=== PATIENT | male | born 1970 | race Caucasian/White ===

== ENCOUNTER 2018-12-29 10:51 | Emergency (ER) | payer OTHER ==
--- NOTE | 2018-12-29 11:23 | EDM.PDOC ---
ED HPI GENERAL MEDICAL PROBLEM - General Chief Complaint: Upper Extremity Injury/Pain Stated Complaint: HAND INJURED Time Seen by Provider: 12/29/18 11:05 Source of Information: Reports: Patient History Limitations: Reports: No Limitations - History of Present Illness INITIAL COMMENTS - FREE TEXT/NARRATIVE: 48 YO WM presents to ER complaining of left hand injury which occurred at work today. Pt reports chuy mckayet came down on his hand causing crush injury to left hand. Pt denies any laceration or other injuries. Pt without any functional deficits other than limitations due to pain. Pt is neurovascularly intact without bruising or swelling or breaks in the skin. Onset: Today Location: Reports: Upper Extremity, Left Quality: Reports: Ache Severity: Moderate Improves with: Reports: Rest Worsens with: Reports: Movement Associated Symptoms: Reports: No Other Symptoms Left Hand Pain Score (Numeric/FACES): 5 - Related Data Allergies Allergy/AdvReac Type Severity Reaction Status Date / Time No Known Drug Allergies Allergy Other Verified 12/29/18 11:16 Home Meds: Home Meds Ibuprofen 400 mg PO ASDIRECTED PRN 12/29/18 [History] Lisinopril 2.5 mg PO DAILY 12/29/18 [History] Review of Systems - Review of Systems Review Of Systems: See Below Constitutional: Reports: No Symptoms Eyes: Reports: No Symptoms Ears: Reports: No Symptoms Nose: Reports: No Symptoms Mouth/Throat: Reports: No Symptoms Respiratory: Reports: No Symptoms Cardiovascular: Reports: No Symptoms GI/Abdominal: Reports: No Symptoms Genitourinary: Reports: No Symptoms Musculoskeletal: Reports: Hand Pain (left hand pain without ) Skin: Reports: No Symptoms Neurological: Reports: No Symptoms Psychiatric: Reports: No Symptoms ED EXAM, GENERAL - Physical Exam Exam: See Below Exam Limited By: No Limitations General Appearance: Alert, WD/WN, No Apparent Distress Nose: Normal Inspection, Normal Mucosa, No Blood Throat/Mouth: Normal Inspection, Normal Lips, Normal Teeth, Normal Gums, Normal Oropharynx, Normal Voice, No Airway Compromise Head: Atraumatic, Normocephalic Neck: Normal Inspection, Supple, Non-Tender, Full Range of Motion Respiratory/Chest: No Respiratory Distress, Lungs Clear, Normal Breath Sounds, No Accessory Muscle Use, Chest Non-Tender Cardiovascular: Normal Peripheral Pulses, Regular Rate, Rhythm, No Edema, No Gallop, No JVD, No Murmur, No Rub GI/Abdominal: Normal Bowel Sounds, Soft, Non-Tender, No Organomegaly, No Distention, No Abnormal Bruit, No Mass Back Exam: Normal Inspection, Full Range of Motion, NT Extremities: Normal Inspection, Normal Range of Motion, No Pedal Edema, Normal Capillary Refill, Other (left hand pain) Neurological: Alert, Oriented, CN II-XII Intact, Normal Cognition, Normal Gait, Normal Reflexes, No Motor/Sensory Deficits Psychiatric: Normal Affect, Normal Mood Skin Exam: Warm, Dry, Intact, Normal Color, No Rash Lymphatic: No Adenopathy Course - Vital Signs Last Recorded V/S: Last Vital Signs Temp 36.8 C 12/29/18 11:04 Pulse 99 12/29/18 11:04 Resp 16 12/29/18 11:04 BP 162/99 H 12/29/18 11:04 Pulse Ox 95 12/29/18 11:04 - Orders/Labs/Meds Orders: Active Orders 24 hr Category Date Time Status Hand 2V Lt [CR] Stat Exams 12/29/18 11:00 Ordered Wrist 2V Lt [CR] Stat Exams 12/29/18 11:01 Ordered - Radiology Interpretation Free Text/Narrative:: left hand- no fx left wrist- no fx Departure - Departure Time of Disposition: 11:37 Disposition: Home, Self-Care 01 Condition: Good Clinical Impression: Contusion of hand, left Qualifiers: Encounter type: initial encounter Qualified Code(s): S60.222A - Contusion of left hand, initial encounter Crush injury of hand Qualifiers: Encounter type: initial encounter Laterality: left Qualified Code(s): S67.22XA - Crushing injury of left hand, initial encounter - Discharge Information Instructions: Crush Injury of the Hand, [id number], Hand Contusion, Easy-to- Read Referrals: Wendie Carson PA-C [Primary Care Provider] - Forms: ED Department Discharge, ED Return to Work/School Form Additional Instructions: 1. discharge home 2. 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 motrin 600mg PO Q6 4. ice 5. return to ER for worsening symptoms - My Orders Last 24 Hours: My Active Orders 12/29/18 11:00 Hand 2V Lt [CR] Stat 12/29/18 11:01 Wrist 2V Lt [CR] Stat - Assessment/Plan Last 24 Hours: My Active Orders 12/29/18 11:00 Hand 2V Lt [CR] Stat 12/29/18 11:01 Wrist 2V Lt [CR] Stat Assessment:: 1. left hand contusion Plan: 1. discharge home 2. off work x 2 days then clinic follow up for re-evaluation and possible work restriction due to type of work ([employer]) 3. motrin 600mg PO Q6 4. ice 5. return to ER for worsening symptoms
[2018-12-29] MEDS: Ketorolac 60 MG/2 ML SDV IM ONE (11:28)
--- NOTE | 2018-12-29 11:36 | CR ---
[id number] RAD/RAD Hand Left 2V EXAM: 2 VIEWS LEFT HAND. INDICATION: PAIN TO LEFT HAND. COMPARISON: None. DISCUSSION: No fracture, dislocation or other acute osseous abnormality. Mild degenerative changes involving the 1st metacarpal phalangeal joint. IMPRESSION: 1. No acute osseous abnormalities. Seth Peraza DO 12/29/18 1133 Thank you for allowing us to participate in the care of your patient.
--- NOTE | 2018-12-29 11:36 | CR ---
[id number] RAD/RAD Wrist Left 2V EXAM: 2 VIEWS LEFT WRIST. INDICATION: PAIN TO LEFT HAND/WRIST, HAND TRAUMA. COMPARISON: None. DISCUSSION: No fracture, dislocation or other osseous abnormality. IMPRESSION: 1. No acute osseous abnormalities. Seth Peraza DO 12/29/18 1134 Thank you for allowing us to participate in the care of your patient.
== END 2018-12-29 11:50 | disposition home or self-care (01) ==
LOC: KA.ED 10:51 → EDSTATUS 11:39 → KA.ED 11:50 → EDSTATUS 12:45
DX: S67.22XA Crushing injury of left hand, initial encounter (principal); Z79.899 Other long term (current) drug therapy; W23.0XXA Caught, crushed, jammed, or pinched between moving objects, initial encounter
CPT/HCPCS: 73100-LT; 73120-LT; 99281; J1885

== ENCOUNTER 2021-11-18 19:00 | Observation (INO) | payer BC ==
--- NOTE | 2021-11-18 19:21 | EDM.PDOC ---
ED HPI GENERAL MEDICAL PROBLEM - General Chief Complaint: General Stated Complaint: RIGHT SIDED CHEST PAIN Time Seen by Provider: 11/18/21 19:10 Source of Information: Reports: Patient History Limitations: Reports: No Limitations - History of Present Illness INITIAL COMMENTS - FREE TEXT/NARRATIVE: 51 YO WM PRESENTS TO ER COMPLAINING OF RIGHT SIDED CHEST PAIN X 5 DAYS. PT RECENTLY HAD RIGHT SHOULDER ARTHROPLASTY 10/30/2021 AND RECENTLY STARTED PHYSICAL THERAPY. PT REPORTS HE HAD SOME SWELLING IN HIS RIGHT ARM LAST WEEK BUT IT RESOLVED SPONTANEOUSLY AFTER 2 DAYS. PT REPORTS HE FIRST NOTICED THE CHEST PAIN AFTER SNEEZING AND DEVELOPED SUDDEN RIGHT SIDED CHEST PAIN WHICH IS WORSE WITH MOVEMENT AND TAKING A DEEP BREATH. PT DENIES SHORTNESS OF BREATH, NO N/V/D, NO DIAPHORESIS, NO DIZZINESS. Onset Date: 11/15/21 Duration: Day(s): (5) Location: Reports: Chest Quality: Reports: Sharp Severity: Mild Improves with: Reports: Immobilization, Medication Worsens with: Reports: Breathing, Movement Associated Symptoms: Reports: Chest Pain. Denies: Cough, Fever/Chills, Nausea/Vomiting, Shortness of Breath, Syncope Right Chest Pain Score (Numeric/FACES): 10 - Related Data Allergies Allergy/AdvReac Type Severity Reaction Status Date / Time No Known Drug Allergies Allergy Other Verified 11/18/21 19:33 Home Meds: Home Meds Ibuprofen 400 mg PO ASDIRECTED PRN 12/29/18 [History] Lisinopril 2.5 mg PO DAILY 12/29/18 [History] Acetaminophen [Tylenol Extra Strength] 500 mg PO Q6H PRN 11/18/21 [History] Diclofenac Sodium 75 mg PO BID 11/18/21 [History] oxyCODONE 5 - 10 mg PO ASDIRECTED PRN 11/18/21 [History] Past Medical History - Past Health History Medical/Surgical History: Denies Medical/Surgical History - Past Surgical History Musculoskeletal Surgical History: Reports: Shoulder Surgery ED ROS GENERAL - Review of Systems Review Of Systems: See Below Constitutional: Reports: No Symptoms HEENT: Reports: No Symptoms Respiratory: Reports: No Symptoms, Pleuritic Chest Pain Cardiovascular: Reports: No Symptoms Endocrine: Reports: No Symptoms GI/Abdominal: Reports: No Symptoms : Reports: No Symptoms Musculoskeletal: Reports: Shoulder Pain Skin: Reports: No Symptoms Neurological: Reports: No Symptoms Psychiatric: Reports: No Symptoms Hematologic/Lymphatic: Reports: No Symptoms Immunologic: Reports: No Symptoms ED EXAM, GENERAL - Physical Exam Exam: See Below Exam Limited By: No Limitations General Appearance: Alert, WD/WN, No Apparent Distress Head: Atraumatic, Normocephalic Neck: Normal Inspection, Supple, Non-Tender, Full Range of Motion Respiratory/Chest: No Respiratory Distress, Lungs Clear, Normal Breath Sounds, No Accessory Muscle Use, Chest Non-Tender Cardiovascular: Normal Peripheral Pulses, Regular Rate, Rhythm, No Edema, No Gallop, No JVD, No Murmur, No Rub GI/Abdominal: Normal Bowel Sounds, Soft, Non-Tender, No Organomegaly, No Distention, No Abnormal Bruit, No Mass Back Exam: Normal Inspection, Full Range of Motion, NT Extremities: Normal Inspection, Normal Range of Motion, No Pedal Edema, Normal Capillary Refill Neurological: Alert, Oriented, CN II-XII Intact, Normal Cognition, Normal Gait, Normal Reflexes, No Motor/Sensory Deficits Psychiatric: Normal Affect, Normal Mood Skin Exam: Warm, Dry, Intact, Normal Color, No Rash Lymphatic: No Adenopathy #1 Interpretation EKG Date: 11/18/21 Time: 19:38 Rhythm: NSR Rate (Beats/Min): 96 [place]: Normal P-Wave: Present QRS: Normal ST-T: Normal QT: Normal Comparison: NA - No Prior EKG Course - Vital Signs Last Recorded V/S: Last Vital Signs Temp 98.3 F 11/18/21 19:05 Pulse 82 11/18/21 21:30 Resp 11 L 11/18/21 21:30 BP 125/73 11/18/21 21:30 Pulse Ox 95 11/18/21 21:30 - Orders/Labs/Meds Orders: Active Orders 24 hr Category Date Time Status Cardiac Monitoring [RC] . DIRECTED Care 11/18/21 19:14 Active Peripheral IV Care [RC] . DIRECTED Care 11/18/21 19:15 Active CTA Chest W Contrast [Ang Chest] [CT] Stat Exams 11/18/21 20:22 Ordered Chest 1V Frontal [CR] Stat Exams 11/18/21 19:14 Ordered Enoxaparin [Lovenox] Med 11/18/21 21:45 Ordered 100 mg SUBCUT Q12H Sodium Chloride 0.9% [Normal Saline] 50 ml Med 11/18/21 20:30 Ordered IV ASDIRECTED Sodium Chloride 0.9% [Saline Flush] Med 11/18/21 19:14 Active 10 ml FLUSH Q8HR PRN Peripheral IV Insertion Adult [OM.PC] Routine Oth 11/18/21 19:14 Ordered EKG 12 Lead [EK] Stat Ther 11/18/21 19:14 Ordered Medication Orders Sodium Chloride (Normal Saline) 50 mls @ 200 mls/min IV ASDIRECTED SLY Sodium Chloride (Sodium Chloride 0.9% 10 Ml Syringe) 10 ml FLUSH Q8HR PRN PRN Reason: keep vein open Last Admin: 11/18/21 19:58 Dose: 10 ml Documented by: ROCIO Labs: Laboratory Tests 11/18/21 11/18/21 11/18/21 Range/Units 19:45 19:45 19:45 WBC 16.16 H (5.00-10.00) 10^3/uL RBC 4.20 L (4.50-6.00) 10^6/uL Hgb 13.1 D (13.0-17.0) g/dL Hct 38.8 L (40.0-52.0) % MCV 92.4 H (82.0-92.0) fL MCH 31.2 H (27.0-31.0) pg MCHC 33.8 (32.0-36.0) g/dL RDW 12.5 (11.5-14.5) % Plt Count 285 (150-400) 10^3/uL MPV 10.3 (7.4-10.4) fL Immature Gran % (Auto) 0.5 (0.0-5.0) % Neut % (Auto) 68.7 (50.0-70.0) % Lymph % (Auto) 17.5 L (20.0-40.0) % [place] % (Auto) 12.3 H (2.0-8.0) % Eos % (Auto) 0.6 L (1.0-3.0) % Baso % (Auto) 0.4 (0.0-1.0) % Neut # (Auto) 11.12 H (2.50-7.00) 10^3/uL Lymph # (Auto) 2.82 (1.00-4.00) 10^3/uL [place] # (Auto) 1.98 H (0.10-0.80) 10^3/uL Eos # (Auto) 0.09 L (0.10-0.30) 10^3/uL Baso # (Auto) 0.07 (0.00-0.10) 10^3/uL Immature Gran # (Auto) 0.08 (0.00-0.50) 10^3/uL D-Dimer, Quantitative 2440 H (<400) ng/mL Sodium 141 (136-145) mmol/L Potassium 4.3 (3.5-5.1) mmol/L Chloride 103 (98-107) mmol/L Carbon Dioxide 25.8 (21.0-32.0) mmol/L Anion Gap 16.5 H (5-15) mmol/L BUN 14 (7-18) mg/dL Creatinine 0.77 (0.51-1.17) mg/dL Est Cr Clr Drug Dosing TNP Estimated GFR (MDRD) > 60 mL/min Glucose 119 (70-140) mg/dL Calcium 8.4 L (8.7-10.3) mg/dL Total Bilirubin 0.5 (0.2-1.0) mg/dL AST 23 (15-37) U/L ALT 25 (14-63) U/L Alkaline Phosphatase 56 (46-116) U/L Troponin I High Sens < 4.000 (0-76.000) pg/mL Total Protein 7.3 (6.4-8.2) g/dL Albumin 3.22 L (3.40-5.00) g/dL Meds: Medications Generic Name Dose Route Start Last Admin Trade Name Freq PRN Reason Stop Dose Admin Sodium Chloride 50 mls @ 200 mls/min 11/18/21 20:30 Normal Saline IV ASDIRECTED SLY Sodium Chloride 10 ml 11/18/21 19:14 11/18/21 19:58 Sodium Chloride 0.9% 10 Ml Syringe FLUSH 10 ml Q8HR PRN Administration keep vein open Discontinued Medications Generic Name Dose Route Start Last Admin Trade Name Freq PRN Reason Stop Dose Admin Hydromorphone HCl 1 mg 11/18/21 20:41 11/18/21 21:02 Hydromorphone 1 Mg/Ml Syringe IVPUSH 11/18/21 20:42 1 mg ONETIME ONE Administration Iopamidol 75 ml 11/18/21 20:22 Iopamidol 755 Mg/Ml 75 Ml Bottle IVPUSH 11/18/21 20:23 ONETIME ONE Ketorolac Tromethamine 30 mg 11/18/21 19:23 11/18/21 19:53 Ketorolac 30 Mg/Ml Sdv IVPUSH 11/18/21 19:24 30 mg ONETIME ONE Administration Ondansetron HCl 4 mg 11/18/21 20:41 11/18/21 20:54 Ondansetron 4 Mg/2 Ml Sdv IVPUSH 11/18/21 20:42 4 mg ONETIME ONE Administration - Radiology Interpretation Free Text/Narrative:: CXR WITH RIGHT RIB SERIES- NO RIB FX OR PTX CTA CHEST WITH IV- PE RIGHT LOWER LOBE, RIGHT UPPER AND SMALL PERIPHERAL POSTERIOR LEFT LOWER LOBE Departure - Departure Time of Disposition: 21:42 Disposition: Refer to Observation Condition: Fair Clinical Impression: PE, Pulmonary embolism - Discharge Information Referrals: Jany Jules MD [Primary Care Provider] - Forms: ED Department Discharge Sepsis Event Note (ED) - Focused Exam Vital Signs: Vital Signs Temp Pulse Resp BP Pulse Ox 11/18/21 21:30 82 11 L 125/73 95 11/18/21 21:15 83 10 L 133/72 95 11/18/21 21:00 87 11 L 129/80 98 11/18/21 20:45 85 17 126/88 97 11/18/21 20:15 84 13 132/79 95 11/18/21 20:01 88 12 126/77 94 L 11/18/21 19:05 98.3 F 105 H 20 149/83 H 97 - My Orders Last 24 Hours: My Active Orders 11/18/21 19:14 Cardiac Monitoring [RC] . DIRECTED Chest 1V Frontal [CR] Stat Sodium Chloride 0.9% [Saline Flush] 10 ml FLUSH Q8HR PRN Peripheral IV Insertion Adult [OM.PC] Routine EKG 12 Lead [EK] Stat 11/18/21 19:15 Peripheral IV Care [RC] . DIRECTED 11/18/21 20:22 CTA Chest W Contrast [Ang Chest] [CT] Stat 11/18/21 20:30 Sodium Chloride 0.9% [Normal Saline] 50 ml IV ASDIRECTED 11/18/21 21:45 Enoxaparin [Lovenox] 100 mg SUBCUT Q12H - Assessment/Plan Last 24 Hours: My Active Orders 11/18/21 19:14 Cardiac Monitoring [RC] . DIRECTED Chest 1V Frontal [CR] Stat Sodium Chloride 0.9% [Saline Flush] 10 ml FLUSH Q8HR PRN Peripheral IV Insertion Adult [OM.PC] Routine EKG 12 Lead [EK] Stat 11/18/21 19:15 Peripheral IV Care [RC] . DIRECTED 11/18/21 20:22 CTA Chest W Contrast [Ang Chest] [CT] Stat 11/18/21 20:30 Sodium Chloride 0.9% [Normal Saline] 50 ml IV ASDIRECTED 11/18/21 21:45 Enoxaparin [Lovenox] 100 mg SUBCUT Q12H Assessment:: 1. BILATERAL PULMONARY EMBOLI Plan: 1. ADMIT TO MEDICINE- DR HAMMOND ACCEPTED @9722 2. LOVENOX 100MG SQ BID 3. DILAUDID 1MG IV Q4 PRN PAIN 4. ZOFRAN 4MG IV Q6 PRN NAUSEA 5. SUPPORTIVE CARE
[2021-11-18] MEDS ORDERED: Ketorolac 30 MG/ML SDV IVPUSH ONE (19:23)
[2021-11-18] MEDS: Sodium Chloride 0.9% 10 ML Syringe FLUSH PRN (19:58)
--- NOTE | 2021-11-18 20:03 | CR ---
[id number] RAD/RAD Ribs Right W PA Chest EXAM: RAD Ribs Right W PA Chest INDICATION: PAIN COMPARISON: None. DISCUSSION: Cardiomediastinal silhouette is normal in size and contour. No infiltrate, effusion, pneumothorax, or edema. No radiographic evidence of acute rib fracture. IMPRESSION: No radiographic evidence of acute rib fracture. No pneumothorax. Seth Peraza DO 11/18/212000 Thank you for allowing us to participate in the care of your patient.
[2021-11-18 20:17] LABS: ANION GAP 16.5 mmol/L (5-15); CHLORIDE,CL 103 mmol/L (98-107); SODIUM,NA 141 mmol/L (136-145)
[2021-11-18] MEDS ORDERED: Iopamidol 755 Mg/ML 75 ML Bottle IVPUSH ONE (20:22)
[2021-11-18] MEDS ORDERED: Sodium Chloride 0.9% 50 ML IV SCH (20:30)
[2021-11-18] MEDS ORDERED: HYDROmorphone 1 MG/ML Syringe IVPUSH ONE (20:41)
[2021-11-18] MEDS ORDERED: Ondansetron 4 MG/2 ML SDV IVPUSH ONE (20:41)
[2021-11-18] MEDS ORDERED: Ondansetron 4 MG/2 ML SDV IV PRN (21:44)
[2021-11-18] MEDS ORDERED: Ketorolac 30 MG/ML SDV IVPUSH PRN (21:44)
[2021-11-18] MEDS: Enoxaparin 100 MG/1 ML Syringe SUBCUT SCH (21:59)
[2021-11-19] MEDS: HYDROmorphone 1 MG/ML Syringe IVPUSH PRN ×2 (00:06→08:18)
[2021-11-19] MEDS: Sodium Chloride 0.9% 10 ML Syringe FLUSH PRN ×2 (00:11→08:22)
--- NOTE | 2021-11-19 06:19 | CT ---
[id number] CT/CTA Chest EXAM: CTA Chest CLINICAL DATA: PAIN COMPARISON STUDY: February 11, 2021. FINDINGS: Lungs: Clear. Patchy areas of groundglass parenchymal opacification the right lung with trace effusion. Findings are nonspecific but can be seen with early/mild changes of COVID pneumonia. Mild granulomatous change throughout both lungs as well. Mediastinum: No mediastinal or hilar lymphadenopathy. Heart and great vessels: Heart is normal in size. No pericardial effusion. Thoracic aorta is normal in caliber. Pulmonary arteries are normal in caliber. Acute embolic material in numerous segmental and subsegmental branches of all 3 lobes on the right. Possible tiny embolus in a subsegmental branch of the posterior left lower lobe. Bones: No acute fracture or compression deformity. Spondylosis. Upper abdomen: Unremarkable. IMPRESSION: Bilateral segmental/subsegmental pulmonary emboli on the right and possible tiny subsegmental embolus on the left. Overall clot burden is small. Possible mild changes of developing COVID pneumonia in the right lung with a trace effusion. Solomon Huff MD 11/19/21 0618 Thank you for allowing us to participate in the care of your patient.
[2021-11-19] MEDS: Enoxaparin 100 MG/1 ML Syringe SUBCUT SCH (09:37)
[2021-11-19] MEDS ORDERED: Acetaminophen 325 MG Tab PO ONE (11:05)
[2021-11-19] MEDS ORDERED: Ondansetron 4 MG Tab.DIS PO ONE (11:05)
[2021-11-19] MEDS ORDERED: Sodium Chloride 0.9% 500 ML IV SCH (11:15)
[2021-11-19] MEDS ORDERED: Sodium Chloride 0.9% 400 ML IV SCH (11:22)
[2021-11-19] MEDS ORDERED: Ketorolac 60 MG/2 ML SDV IM ONE (13:18)
--- NOTE | 2021-11-26 12:01 | PCM.DCSUM1 ---
Discharge Summary - Hospital Course Diagnosis: Stroke: No - Discharge Data Discharge Date: 11/19/21 Discharge Disposition: Home, Self-Care 01 Condition: Good - Referral to Home Health Primary Care Physician: Jany Jules MD - Patient Instructions Diet: Usual Diet as Tolerated, Drink 8-10+ Glasses/Day Diet, Other: Increase fiber, prunes, whole grains in diet, grapes, raisens. Driving: Do Not Drive Showering/Bathing: May Shower Notify Provider of: Fever, Increased Pain, Nausea and/or Vomiting Other/Special Instructions: We started you on a blood thinner, Xarealto to take TWICE daily x 3 weeks then you will need a new prescription to take it just DAILY for about 6 months. Monitor for any bleeding anywhere, urine, gums, stool, sputum. Pain pills such as narcotics will most always cause constipation, Increase fiber, prunes, whole grains in diet, grapes, raisens. PLUS take stool softners, I have also placed in a prescritption called Senna S which is good one to take. Use your breathing machine every 1-2 hours as this will help inflate your lungs. - Discharge Plan *PRESCRIPTION DRUG MONITORING PROGRAM REVIEWED*: Not Applicable *COPY OF PRESCRIPTION DRUG MONITORING REPORT IN PATIENT NICOLE: Not Applicable Prescriptions/Med Rec: oxyCODONE 5 - 10 mg PO ASDIRECTED PRN #30 tab PRN Reason: Pain Rivaroxaban [Xarelto] 15 mg PO BID #42 tab Home Medications: Home Meds Lisinopril 2.5 mg PO DAILY 12/29/18 [History] Acetaminophen [Tylenol Extra Strength] 1,000 mg PO Q6H PRN 11/18/21 [History] Rivaroxaban [Xarelto] 15 mg PO BID #42 tab 11/19/21 [Rx] oxyCODONE 5 - 10 mg PO ASDIRECTED PRN #30 tab 11/19/21 [Rx] Referrals: Chintan Lozada NP [Nurse Practitioner] - 11/26/21 2:30 pm - Discharge Summary/Plan Comment DC Time >30 min.: No Total # of Minutes for Discharge Time: 25 minutes Discharge Summary/Plan Comment: Final diagnosis Pulmonary embolus DVT right brachial vein Atelectasis, History summary Scott is a 51-year-old gentleman that was initially admitted through the ED when he came in with a 5-day history is of right-sided chest pain. It was determined for him to have a pulmonary embolism likely sequela of postsurgical as he did have right shoulder arthroplasty on October 30. He did start physical therapy shortly thereafter. He was basically admitted for pain control and have significant pain on inspiration. Hospital course His hospital course went fairly well however he did have significant headache more frontal which seemed to respond initially to ketorolac and IV fluids. It abated somewhat however the morning of discharge he got significantly nausea along with a frontal headache returning and since he did not start his factor X a inhibitor right away he was given another dose of Toradol prior to discharge along with Zofran which seemed to help and his headache was gone prior to discharge. He was started on Xarelto 15 mg p.o. twice daily. Ultrasound to his right artery did demonstrate provocative DVT right brachial vein. He had no cardiac strain or no respiratory distress while in hospital. Given an incentive spirometer to use due to atelectasis Medication changes/adjustments upon discharge Xarelto 15 mg p.o. twice daily x21 days then 20 mg daily Disposition --patient was discharged from the hospital with close follow-up. He is to report any chest pain, hemoptysis, hematuria. Is to use his spirometer as instructed - General Info Date of Service: 11/19/21 Functional Status: Reports: Pain Controlled, Tolerating Diet, Ambulating, New Symptoms (headache much improved) - Review of Systems General: Reports: No Symptoms HEENT: Reports: No Symptoms Pulmonary: Reports: Pleuritic Chest Pain. Denies: Sputum, Hemoptysis Cardiovascular: Reports: No Symptoms Gastrointestinal: Reports: No Symptoms Genitourinary: Reports: No Symptoms Musculoskeletal: Reports: Shoulder Pain Skin: Denies: Bruising Neurological: Denies: Paresthesia Psychiatric: Reports: No Symptoms - Patient Data Vitals - Most Recent: Last Vital Signs Temp 98.2 F 11/19/21 14:46 Pulse 82 11/19/21 14:46 Resp 16 11/19/21 14:46 BP 138/84 11/19/21 14:46 Pulse Ox 92 L 11/19/21 14:46 Weight - Most Recent: 234 lb 2 oz Med Orders - Current: Current Medications Discontinued Medications Acetaminophen (Acetaminophen 325 Mg Tab) 650 mg PO NOW ONE Stop: 11/19/21 11:06 Last Admin: 11/19/21 11:18 Dose: 650 mg Documented by: Enoxaparin Sodium (Enoxaparin 100 Mg/1 Ml Syringe) 100 mg SUBCUT Q12H [facility] Last Admin: 11/19/21 09:37 Dose: 100 mg Documented by: Hydromorphone HCl (Hydromorphone 1 Mg/Ml Syringe) 1 mg IVPUSH ONETIME ONE Stop: 11/18/21 20:42 Last Admin: 11/18/21 21:02 Dose: 1 mg Documented by: Hydromorphone HCl (Hydromorphone 1 Mg/Ml Syringe) 1 mg IVPUSH Q4H PRN PRN Reason: Pain Last Admin: 11/19/21 08:18 Dose: 1 mg Documented by: Sodium Chloride (Normal Saline) 50 mls @ 200 mls/min IV ASDIRECTED [facility] Last Admin: 11/18/21 20:25 Dose: 200 mls/min Documented by: Sodium Chloride (Normal Saline) 500 mls @ 999 mls/hr IV .BOLUS [facility] Last Admin: 11/19/21 11:20 Dose: 999 mls/hr Documented by: Sodium Chloride (Normal Saline) 400 mls @ 799.112 mls/hr IV .BOLUS [facility] Iopamidol (Iopamidol 755 Mg/Ml 75 Ml Bottle) 75 ml IVPUSH ONETIME ONE Stop: 11/18/21 20:23 Last Admin: 11/18/21 20:30 Dose: 75 ml Documented by: Ketorolac Tromethamine (Ketorolac 30 Mg/Ml Sdv) 30 mg IVPUSH ONETIME ONE Stop: 11/18/21 19:24 Last Admin: 11/18/21 19:53 Dose: 30 mg Documented by: Ketorolac Tromethamine (Ketorolac 30 Mg/Ml Sdv) 30 mg IVPUSH Q6H PRN PRN Reason: Pain (moderate 4-6) Last Admin: 11/19/21 06:28 Dose: 30 mg Documented by: Ketorolac Tromethamine (Ketorolac 60 Mg/2 Ml Sdv) 60 mg IM ONETIME ONE Stop: 11/19/21 13:19 Last Admin: 11/19/21 13:42 Dose: 60 mg Documented by: Ondansetron HCl (Ondansetron 4 Mg/2 Ml Sdv) 4 mg IVPUSH ONETIME ONE Stop: 11/18/21 20:42 Last Admin: 11/18/21 20:54 Dose: 4 mg Documented by: Ondansetron HCl (Ondansetron 4 Mg/2 Ml Sdv) 4 mg IV Q6H PRN PRN Reason: Nausea/Vomiting Last Admin: 11/19/21 09:31 Dose: 4 mg Documented by: Ondansetron HCl (Ondansetron 4 Mg Tab.Dis) 4 mg PO ONETIME ONE Stop: 11/19/21 11:06 Last Admin: 11/19/21 11:18 Dose: 4 mg Documented by: Sodium Chloride (Sodium Chloride 0.9% 10 Ml Syringe) 10 ml FLUSH Q8HR PRN PRN Reason: keep vein open Last Admin: 11/19/21 08:22 Dose: 10 ml Documented by: - Exam Quality Assessment: Reports: DVT Prophylaxis. Denies: Supplemental Oxygen General: Reports: Alert, Oriented Neck: Reports: Supple Lungs: Reports: Crackles Cardiovascular: Reports: Regular Rate, Regular Rhythm GI/Abdominal Exam: Normal Bowel Sounds, Soft Psy/Mental Status: Reports: Alert, Normal Affect
== END 2021-11-19 15:15 | disposition home or self-care (01) ==
LOC: KA.ED 19:00 → KA.MS 21:42
PROVIDERS: ADMIT Physician Assistant Medical; ATTEND Internal Medicine
DX: I26.99 Other pulmonary embolism without acute cor pulmonale (principal); Z96.611 Presence of right artificial shoulder joint; Z79.899 Other long term (current) drug therapy; Z20.822 Contact with and (suspected) exposure to COVID-19
CPT/HCPCS: 36415; 71101; 71275; 80053; 84484; 85025; 85379; 87635; 93005; 96372; 96374; 96375; 96376; 99285; A9270; G0378; J1170; J1650; J1885; J2405; J7040; Q9967; U0002

== ENCOUNTER 2021-11-21 14:29 | Emergency (ER) | payer BC ==
--- NOTE | 2021-11-21 15:54 | EDM.PDOC ---
ED HPI GENERAL MEDICAL PROBLEM - General Chief Complaint: General Stated Complaint: HEADACHE Time Seen by Provider: 11/21/21 15:09 Source of Information: Reports: Patient, Significant Other History Limitations: Reports: No Limitations - History of Present Illness INITIAL COMMENTS - FREE TEXT/NARRATIVE: Patient presents with severe frontal headache from left episcopalian to right. It started at 0300 this morning and has been quite constant since then. It has improved a little from a couple hours ago when he was planning to come to ER but was hurting to much to move or come in. Three days ago he was diagnosed with a PE in right lung and given Lovenox; Xarelto was started the next day and continues bid. He has never had severe headaches or migraines before. He has had nausea with it, not now. Denies vision change, vomiting, balance trouble. Denies any recent trauma. Headache Pain Score (Numeric/FACES): 10 - Related Data Allergies Allergy/AdvReac Type Severity Reaction Status Date / Time No Known Drug Allergies Allergy Other Verified 11/21/21 14:42 Home Meds: Home Meds Lisinopril 2.5 mg PO DAILY 12/29/18 [History] Acetaminophen [Tylenol Extra Strength] 1,000 mg PO Q6H PRN 11/18/21 [History] Rivaroxaban [Xarelto] 15 mg PO BID #42 tab 11/19/21 [Rx] oxyCODONE 5 - 10 mg PO ASDIRECTED PRN #30 tab 11/19/21 [Rx] Past Medical History - Past Health History Medical/Surgical History: Denies Medical/Surgical History HEENT History: Reports: Impaired Vision Other HEENT History: wears glasses Cardiovascular History: Reports: High Cholesterol, Hypertension Respiratory History: Reports: Sleep Apnea Other Respiratory History: nodule of right lung. pulmonary nodule, left Psychiatric History: Reports: Anxiety Other Endocrine/Metabolic History: leukocytosis Other Hematologic History: leukocytosis - Infectious Disease History Infectious Disease History: Reports: Chicken Pox, Mononucleosis - Past Surgical History GI Surgical History: Reports: Appendectomy Other Endocrine Surgeries/Procedures: 04/08/12: axillary lymphadenectomy Musculoskeletal Surgical History: Reports: Shoulder Surgery Other Musculoskeletal Surgeries/Procedures:: 10/30/21: right shoulder arthroscopy with rotator cuff repair Social & Family History - Family History Family Medical History: No Pertinent Family History - Tobacco Use Tobacco Use Status *Q: Never Tobacco User - Caffeine Use Caffeine Use: Reports: Coffee, Soda, Tea - Recreational Drug Use Recreational Drug Use: No ED ROS GENERAL - Review of Systems Review Of Systems: Comprehensive ROS is negative, except as noted in HPI. ED EXAM, GENERAL - Physical Exam Exam: See Below Exam Limited By: No Limitations General Appearance: Alert, WD/WN, No Apparent Distress Eye Exam: Bilateral Eye: EOMI, Normal Inspection (full visual arias bilat), PERRL Ears: Normal External Exam, Hearing Grossly Normal Nose: Normal Inspection, No Blood Throat/Mouth: Normal Inspection, Normal Voice, No Airway Compromise Head: Atraumatic, Normocephalic Neck: Normal Inspection, Full Range of Motion Respiratory/Chest: No Respiratory Distress, Lungs Clear, Normal Breath Sounds Cardiovascular: Regular Rate, Rhythm, No Murmur Back Exam: Normal Inspection, Full Range of Motion Extremities: Normal Inspection, Normal Range of Motion Neurological: Alert, Oriented, CN II-XII Intact, Normal Cognition, No Motor/Sensory Deficits Psychiatric: Normal Affect, Normal Mood Skin Exam: Warm, Dry, Intact, Normal Color, No Rash Course - Vital Signs Last Recorded V/S: Last Vital Signs Temp 98.4 F 11/21/21 14:37 Pulse 78 11/21/21 14:37 Resp 18 11/21/21 14:37 BP 138/97 H 11/21/21 14:37 Pulse Ox 96 11/21/21 14:37 - Orders/Labs/Meds Meds: Medications Discontinued Medications Generic Name Dose Route Start Last Admin Trade Name Panda PRN Reason Stop Dose Admin Diphenhydramine HCl 50 mg 11/21/21 16:05 11/21/21 16:37 Diphenhydramine 50 Mg/Ml Sdv IVPUSH 11/21/21 16:06 50 mg ONETIME ONE Administration Sodium Chloride 1,000 mls @ 999 mls/hr 11/21/21 16:05 11/21/21 16:37 Normal Saline IV 11/21/21 17:05 999 mls/hr .BOLUS ONE Administration Ketorolac Tromethamine 30 mg 11/21/21 16:30 11/21/21 16:36 Ketorolac 30 Mg/Ml Sdv IVPUSH 11/21/21 16:31 30 mg ONETIME ONE Administration Ondansetron HCl 8 mg 11/21/21 16:05 11/21/21 16:37 Ondansetron 4 Mg/2 Ml Sdv IVPUSH 11/21/21 16:06 8 mg ONETIME ONE Administration - Re-Assessments/Exams Free Text/Narrative Re-Assessment/Exam: 11/21/21 16:[address] shows no acute intracranial process. Migraine cocktail is running. Patient is resting and stable. We discussed findings and treatment plan. Departure - Departure Time of Disposition: 19:33 Disposition: Home, Self-Care 01 Condition: Good Clinical Impression: Headache above the eye region - Discharge Information Instructions: Migraine Headache, [id number] Referrals: Jany Jules MD [Primary Care Provider] - Forms: ED Department Discharge Additional Instructions: Go home and try to sleep for up to 12 hours. Headache should be gone or nearly gone then. If you have a recurrent headache follow up with your PCP if available or if severe go to ER if needed. Sepsis Event Note (ED) - Evaluation Sepsis Screening Result: No Definite Risk
[2021-11-21] MEDS ORDERED: Sodium Chloride 0.9% 1,000 ML IV ONE (16:05)
[2021-11-21] MEDS ORDERED: Ondansetron 4 MG/2 ML SDV IVPUSH ONE (16:05)
[2021-11-21] MEDS ORDERED: diphenhydrAMINE 50 MG/ML SDV IVPUSH ONE (16:05)
--- NOTE | 2021-11-21 16:27 | CT ---
[id number] CT/CT Head WO IV EXAM: CT Head WO IV CLINICAL DATA: HEADACHE ANTICOAGULATED PATIENT COMPARISON: No previous similar exam is available for comparison. FINDINGS: There is no mass or mass effect. There is no hemorrhage or hydrocephalus. There are no extra-axial fluid collections. There are no sites of abnormal attenuation. IMPRESSION: NO PLAIN CT EVIDENCE OF ACUTE INTRACRANIAL PROCESS. Jose Francisco Orozco MD 11/21/21 2139 Thank you for allowing us to participate in the care of your patient.
[2021-11-21] MEDS ORDERED: Ketorolac 30 MG/ML SDV IVPUSH ONE (16:30)
== END 2021-11-21 17:45 | disposition home or self-care (01) ==
LOC: KA.ED 14:29
DX: R51.9 Headache, unspecified (principal); E78.00 Pure hypercholesterolemia, unspecified; I10 Essential (primary) hypertension; Z79.01 Long term (current) use of anticoagulants
CPT/HCPCS: 70450; 96374; 96375; 99284; J1200; J1885; J2405; J7030

== ENCOUNTER 2023-07-21 09:50 | Emergency (ER) | payer OTHER, BC ==
[2023-07-21] MEDS ORDERED: HYDROmorphone 1 MG/ML Syringe ONE (09:58)
[2023-07-21] MEDS ORDERED: ceFAZolin 1 GM Vial IM ONE (10:04)
[2023-07-21] MEDS ORDERED: HYDROmorphone 1 MG/ML Syringe IVPUSH ONE (10:07)
[2023-07-21] MEDS ORDERED: ceFAZolin 1 GM Vial IVPUSH ONE (10:12)
[2023-07-21] MEDS ORDERED: Water For Injection, Sterile 20 ML ONE (10:24)
== END 2023-07-21 10:45 | disposition home or self-care (01) ==
LOC: KA.ED 09:50
DX: S62.637B Displaced fracture of distal phalanx of left little finger, initial encounter for open fracture (principal); E78.00 Pure hypercholesterolemia, unspecified; I10 Essential (primary) hypertension; Z79.899 Other long term (current) drug therapy; Z88.8 Allergy status to other drugs, medicaments and biological substances; W26.8XXA Contact with other sharp object(s), not elsewhere classified, initial encounter
CPT/HCPCS: 73140-F4; 96374; 96375; 99283-25; J0690; J1170

== ENCOUNTER 2025-07-01 12:05 | Emergency (ER) | payer BC ==
[2025-07-01] MEDS: Bacitracin/Neomycin/Polymyxin B Oint 0.9 GM U/D Packet TOP ONE (13:02)
== END 2025-07-01 13:13 | disposition home or self-care (01) ==
LOC: KA.ED 12:05
DX: S61.012A Laceration without foreign body of left thumb without damage to nail, initial encounter (principal); I10 Essential (primary) hypertension; Z79.899 Other long term (current) drug therapy; Z88.8 Allergy status to other drugs, medicaments and biological substances; Z90.49 Acquired absence of other specified parts of digestive tract; W22.8XXA Striking against or struck by other objects, initial encounter
CPT/HCPCS: 12002; 99282; J2003